=== PATIENT | female | born 1960 | race Caucasian/White ===

== ENCOUNTER → 2017-03-08 | Outpatient (CLI) | payer BC ==
[~2017-03-08] MED LIST: ALLEGRA-D 12 H1 EACH PO; ASPIRIN325 MG PO; CALCIUM + D3 E1 EACH PO; ELAVIL 25 MG TA25 MG PO; FIORICET TAB1 EA PO; FISH OIL-OMEGA1 EACH PO; HAIR, SKIN & N1 EAC2 PO; MELATONIN10 M2 PO; NORCO 7.5-3251 EACH PO; SYNTHROID75 MCG PO; ULTRAM50 MG PO; ZANAFLEX 4 MG TA4 MG PO
[2017-03-08 09:43] LABS: RED BLOOD COUNT 4.37 M/UL (4.00-5.10); WHITE BLOOD COUNT 7.6 K/UL (4.5-11.0)
[2017-03-08 09:55] LABS: BUN/CREATININE RATIO 19 (0-10)
== END ==
LOC: OPSV2 09:08
PROVIDERS: Orthopaedic Surgery
DX: Z01.812 Encounter for preprocedural laboratory examination (principal); Z01.810 Encounter for preprocedural cardiovascular examination; M19.042 Primary osteoarthritis, left hand
CPT/HCPCS: 36415; 80048; 85025; 93005

== ENCOUNTER → 2017-04-03 | Day surgery (SDC) | payer BC ==
[~2017-04-03] VITALS: Ht 157.5 cm; Wt 59.4 kg
== END | disposition home or self-care (01) ==
LOC: OR 03-15 07:45
PROVIDERS: Orthopaedic Surgery
PROC: 0RQT0ZZ Repair Left Carpometacarpal Joint, Open Approach (ICD-10-PCS; principal; 2017-04-03 14:45)
DX: M18.12 Unilateral primary osteoarthritis of first carpometacarpal joint, left hand (principal); E07.9 Disorder of thyroid, unspecified; Z88.6 Allergy status to analgesic agent; Z88.5 Allergy status to narcotic agent; Z79.82 Long term (current) use of aspirin; Z79.899 Other long term (current) drug therapy; Z87.891 Personal history of nicotine dependence; Z86.69 Personal history of other diseases of the nervous system and sense organs
CPT/HCPCS: 73130; 76000; C1713; J0690; J1885; J2250; J2765; J3010; J7030; J7120

== ENCOUNTER 2021-01-14 11:32 | Emergency (ER) | payer OTHER ==
[~2021-01-14 11:32] MED LIST changes: +ASPIRIN EC81 MG PO; +CIPRO500 MG PO; +FLECAINIDE ACET50 MG PO; +METOPROLOL TART25 MG PO; +NORFLEX 100 MG100 MG PO; +OMNICEF 300 MG300 MG PO; +PRAVACHOL40 MG PO; +PROZAC20 MG PO; +SYNTHROID125 MCG PO; +Voltaren Gel 1 % TOP
[2021-01-14] MEDS ORDERED: HYDROCODON-ACE1 EAC4 PO (13:57)
== END 2021-01-14 14:35 | disposition home or self-care (01) ==
LOC: ER1 11:32
DX: S82.034A Nondisplaced transverse fracture of right patella, initial encounter for closed fracture (principal); S46.912A Strain of unspecified muscle, fascia and tendon at shoulder and upper arm level, left arm, initial encounter; I10 Essential (primary) hypertension; W01.0XXA Fall on same level from slipping, tripping and stumbling without subsequent striking against object, initial encounter; Y92.009 Unspecified place in unspecified non-institutional (private) residence as the place of occurrence of the external cause; Z88.5 Allergy status to narcotic agent; Z88.6 Allergy status to analgesic agent; Z90.710 Acquired absence of both cervix and uterus
CPT/HCPCS: 73030; 73564; 99283

== ENCOUNTER → 2021-09-04 | Outpatient (CLI) | payer OTHER ==
[~2021-09-04] MED LIST changes: +HYDROCODON-ACE1 EAC4 PO
== END ==
LOC: RAD 12:11
DX: S60.111A Contusion of right thumb with damage to nail, initial encounter (principal)
CPT/HCPCS: 73140

== ENCOUNTER → 2021-12-01 | Outpatient (CLI) | payer OTHER | LOC: HEART 5 08:00 | DX: R00.1 Bradycardia, unspecified (principal); R06.02 Shortness of breath; Z85.79 Personal history of other malignant neoplasms of lymphoid, hematopoietic and related tissues | CPT/HCPCS: 93306 ==